=== PATIENT | female | born 1960 | race Caucasian/White ===

== ENCOUNTER 2017-07-25 12:46 | Inpatient (IN) ==
[2017-07-25] MEDS ORDERED: ZOFRAN IV ONE ×2 (14:06→15:20)
[2017-07-25] MEDS: NS 1,000 ML IV ONE ×2 (14:06→16:21)
[2017-07-25] MEDS ORDERED: TORADOL IV ONE (14:07)
[2017-07-25] MEDS ORDERED: TORADOL IM ONE (15:20)
[2017-07-25] MEDS ORDERED: ZOFRAN IM ONE (15:20)
--- NOTE | 2017-07-25 15:22 | Diag Imaging Result Doc PS360 ---
US GB < RUQ (LIMITED) - 07/25/2017 INDICATION: belly pain TECHNIQUE: Gu scale, color Doppler, and duplex evaluation of the abdomen was performed. COMPARISON: None FINDINGS: The liver appears enlarged at 22 cm and hyperechoic suggesting diffuse fatty liver infiltration. No focal masses are appreciated. The IVC and aorta appear normal. The pancreas is obscured by bowel gas artifact. The gallbladder is somewhat distended and contains moderate sludge and gallbladder wall thickening measuring 4 mm. The patient was tender over the gallbladder during scanning consistent with a positive sonographic Sanchez's sign. No gallstones are appreciated. The common bile duct is dilated and measures 9 mm. The portal vein is patent with hepatopetal flow. The right kidney appears normal. There is no hydronephrosis. IMPRESSION: 1.Gallbladder distention with sludge, gallbladder wall thickening, positive sonographic Sanchez's sign and prominent common bile duct. No cholelithiasis. Cannot exclude acute cholecystitis. Hepatobiliary scan may be beneficial. Correlate clinically. 2.Hepatomegaly with probable hepatic steatosis. Electronically signed by Sasha Larson 07/25/2017 3:20 PM
[2017-07-25 15:24] LABS: MANUAL DIFF NEEDED? NO
[2017-07-25 15:25] LABS: EOS# 0.02 X1000 (0.0-0.7); EOS% 0.3 % (0.0-10.0); HEMATOCRIT 40.5 % (37.0-47.0); HEMOGLOBIN 13.3 g/dL (12.0-16.0); IMM GRAN# 0.02 X1000 (0.0-0.04); IMM GRAN% 0.3 % (0.0-0.5); LYMPH# 0.56 X1000 (1.2-3.4); LYMPH% 8.2 % (20.5-51.1); MCH 30.2 PG (27-31); MCHC 32.8 g/dL (33-37); MCV 91.8 FL (81-99); MONO# 0.59 X1000 (0.11-0.59); MONO% 8.6 % (1.7-9.3); MPV 10.5 FL (7.4-10.4); NEUT% 81.6 % (42.2-75.2); PLT 267 X1000 (130-400); RBC 4.41 XMIL (4.2-5.4)
[2017-07-25] MEDS ORDERED: ZOSYN 3.375 GM in NS 50 ML IV ONE (15:38)
--- NOTE | 2017-07-25 15:40 | PROVIDER DOCUMENTATION ---
This chart was entered by El George Scribe, acting as scribe for Baldev Cuello MD. HPI-Abdominal Pain/GI Problem - General Chief Complaint: Return/Recheck Stated Complaint: RETURN/RECHECK Time Seen by Provider: 07/25/17 13:53 Source: patient Allergies/Adverse Reactions: Patient Allergies Allergy/AdvReac Type Severity Reaction Status Date / Time codeine Allergy NAUSEA Verified 03/04/17 19:44 levofloxacin [From Levaquin] Allergy SWELLING Verified 03/04/17 19:44 Sulfa (Sulfonamide Allergy Unknown Verified 03/04/17 19:44 Antibiotics) Home Medications: Home Medication List Medication Instructions Recorded Confirmed Last Taken Type Aspirin 81 mg PO DAILY 07/28/16 04/19/17 07/28/16 08:00 History 81 mg Bisoprolol [Zebeta] 5 mg PO DAILY 07/28/16 04/19/17 07/28/16 08:00 History 5 mg Levothyroxine [Synthroid] 50 mcg PO DAILY 07/28/16 04/19/17 07/28/16 07:00 History 50 mcg Losartan Potassium [Cozaar] 100 mg PO DAILY 07/28/16 04/19/17 07/28/16 08:00 History 100 mg Metformin HCl [Glucophage] 1,000 mg PO BID 07/28/16 04/19/17 07/28/16 08:00 History 1000 mg Omeprazole 40 mg PO DAILY 07/28/16 04/19/17 07/28/16 08:00 History 40 mg Sertraline [Zoloft] 25 mg PO HS 07/28/16 04/19/17 07/27/16 21:00 History 25 mg Trazodone [Desyrel] 50 mg PO HS PRN 07/28/16 04/19/17 07/27/16 21:00 History 50 mg Cyclobenzaprine [Flexeril] 10 mg PO PRN PRN 07/29/16 04/19/17 07/15/16 History Dulaglutide [Trulicity] 1.5 mg SQ ORDERED 07/29/16 04/19/17 07/22/16 History Meloxicam [Mobic] 15 mg PO DAILY PRN PRN 07/29/16 04/19/17 07/22/16 History Methocarbamol 750 mg PO DAILY PRN PRN 07/29/16 04/19/17 07/15/16 History Montelukast Sodium [Singulair] 10 mg PO DAILY 07/29/16 04/19/17 07/28/16 History Ondansetron Odt [Zofran Odt] 4 mg PO Q6H PRN PRN 07/29/16 04/19/17 07/24/16 History Oxycodone HCl/Acetaminophen 1 each PO Q6H PRN PRN 07/29/16 04/19/17 07/22/16 History [Oxycodone-Acetaminophen 5-325] Rosuvastatin Calcium [Crestor] 20 mg PO DAILY 03/04/17 04/19/17 Unknown History Hydrocodone/Acetaminophen [[place] 1 each PO Q6H PRN #12 tablet 07/21/17 Unknown Rx 5-325 Tablet] Lansoprazole [Prevacid] 30 mg PO DAILY #30 capsule. 07/21/17 Unknown Rx - History of Present Illness-ABD Nature of Presenting Problems: patient is a 56 y/o F that presents to the ER with RUQ pain x 5 days with n/v. patient was seen initially told it was GERD, pain has kept on so she called her pcp. Schedule for u/s at 2pm today but couldn't go due to pain Abdominal Pain Onset Location: reports: RUQ Pain Radiation: reports: no radiation Quality of Pain: reports: dull, sharp Severity in ED: reports: moderate Onset/Duration: reports: abrupt, 5 days ago Timing: reports: still present, constant Activities at Onset: reports: none Modifying Factors: worse with: eating, palpation Associated Symptoms: reports: nausea, vomiting. denies: back/neck pain, diarrhea, dizziness, fever/chills, genitourinary problems, shortness of breath Dark Stools Present?: reports: none noticed Rectal Bleeding: reports: none Similar Symptoms Previously?: Yes Recently seen or treated by another doctor?: Yes Review of Systems - Adult - REVIEW OF SYSTEMS - ADULT Constitutional: denies: chills, fever Eyes: reports: no symptoms reported Ears, Nose, Mouth & Throat: reports: no symptoms reported Cardiovascular: denies: chest pain, orthopnea, palpitations Respiratory: denies: cough, shortness of breath, wheezing Gastrointestinal: reports: abdominal pain, nausea, vomiting. denies: constipation, diarrhea, rectal bleeding Genitourinary: reports: no symptoms reported Musculoskeletal: denies: bone pain, muscle aches, neck pain Integumentary: reports: no symptoms reported Neurological: reports: no symptoms reported Psychiatric: reports: no symptoms reported Endocrine: reports: no symptoms reported Hematologic/Lymphatic: reports: no symptoms reported Allergic/Immunologic: reports: no symptoms reported All Other Systems: Reviewed and Negative Past History - Adult - PAST MEDICAL HISTORY-ADULT Review of Records: reports: Old Records Reviewed, Nursing Assessment Review, Medications Reviewed Major Childhood Illnesses: reports: denies history Cardiovascular: reports: HTN, heart valve problem, hyperlipidemia Respiratory: reports: sleep apnea Gastrointestinal: reports: GERD Obstetrical/Gynecological: reports: denies history Genitourinary: reports: denies history Musculoskeletal: reports: denies history Neurological: reports: denies history Endocrine/Immune: reports: Diabetes, thyroid disorder Other Conditions: reports: denies history - PRIOR SURGERIES/PROCEDURES Surgical/Procedure History: reports: hysterectomy, other (lithotripsy) - IMMUNIZATION STATUS Childhood Immunizations: See Nurse Assessment Flu Vaccine: See Nurse Assessment - FAMILY HISTORY Family History: reviewed, not pertinent - SOCIAL HISTORY Smoking: non-smoker Alcohol Use Frequency: never Living Situation: family Physical Exam-General - PHYSICAL EXAM-ADULT Initial Vital Signs Reviewed: Yes - CONSTITUTIONAL General Appearance: alert, mild distress - EYES Eyes: PERRL/EOMI, pink conjunctivae - HEAD, EARS, NOSE, MOUTH & THROAT HENMT: normocephalic/atraumatic, moist mucous membranes, normal ENT inspection - NECK Neck: full range of motion, normal inspection - RESPIRATORY Respiratory: lungs clear, normal breath sounds, no respiratory distress, no accessory muscle use - CARDIOVASCULAR Cardiovascular: regular rate, rhythm, no edema, no murmur - GASTROINTESTINAL (ABDOMEN) Abdominal Exam: normal bowel sounds, soft, no organomegaly, no pulsatile mass, tenderness (RUQ), Sanchez's sign - MUSCULOSKELETAL Back Exam: no CVA tenderness, no vertebral tenderness Extremity: normal range of motion, normal inspection, no pedal edema - SKIN Integumentary: normal color, warm/dry - NEUROLOGIC Neurologic: fire assistant II-XII nml as tested, no motor/sensory deficits - PSYCHIATRIC Psych/Mental Status: normal mood/affect, normal thought content, normal thought process, oriented x 3 Progress - PLAN OF CARE/RESULTS Progress/Plan/Lab Results: Vital Signs - 8 hr 07/25/17 12:49 Temperature 98 F Pulse Rate 60 Respiratory Rate 18 Blood Pressure 125/55 O2 Sat by Pulse Oximetry 97 Result Diagrams: 07/25/17 15:20 - ULTRASOUND (By Radiology) 1 US Study: Gallbladder Impression: Abnormal US Results: GB distention with sludge,thickening of wall, hepatomegaly - CONSULTS/PCP/HOSPITALIST Notification #1 *Consult/PCP/Hospitalist*: Time Discussed: 15:34 Reason/Comments: to his service Consult Disposition: Admit Departure - Departure Date of Disposition Decision: 07/25/17 Time of Disposition Decision: 15:34 DIAGNOSIS: Cholecystitis Disposition: ADMITTED INPATIENT 09 Certified Medical Emergency: Emergent Condition: Stable Referrals and Follow-Ups: Benjamin River DO [Primary Care Provider] - - Critical Care Note This patient required my direct & personal management of CC.: No Attestation - Physician/ ANAMARIA Attestation The physician spent face to face time with patient:: Yes Advanced Practice Provider documentation review:: Supervising physician onsite and consulted in the evaluation and care of this patient. The physician did have a face to face encounter with the patient. This chart was documented by the indicated scribe, (El George, Scribe) and accurately reflects the services I performed and decisions made by me, Baldev Cuello MD, as attested by the provider's signature.
[2017-07-25 15:53] LABS: AGAP 17; ALBUMIN 4.2 g/dL (3.5-5.0); ALKALINE PHOSPHATASE 155 U/L (32-104); BUN 11 mg/dL (8-22); CALCIUM 9.7 mg/dL (8.8-10.2); CHLORIDE 98 mmol/L (98-107); COSMO 277; GOT 360 U/L (10-30); GPT 133 U/L (10-36); POTASSIUM 3.3 mmol/L (3.5-5.1); SODIUM 136 mmol/L (136-145); TCO2 21 mmol/L (25-35); TOTAL PROTEIN 7.6 g/dL (6.3-8.3)
[2017-07-25] MEDS ORDERED: NS 1,000 ML IV SCH (18:00)
[2017-07-25] MEDS ORDERED: QUELICIN (DOSE) ONE (20:25)
[2017-07-25] MEDS ORDERED: XYLOCAINE-MPF 2% ONE (20:25)
[2017-07-25] MEDS ORDERED: DIPRIVAN 1% ONE (20:26)
[2017-07-25] MEDS ORDERED: MARCAINE 0.25% PF ONE (20:30)
[2017-07-25] MEDS ORDERED: XYLOCAINE 1%/EPI 1:100,000 ONE (20:30)
[2017-07-25] MEDS ORDERED: LR 1,000 ML ONE ×2 (20:30→22:36)
[2017-07-25] MEDS ORDERED: SODIUM CHLORIDE 0.9% ONE (20:30)
[2017-07-25] MEDS ORDERED: TRANSDERM-SCOP ONE (20:46)
[2017-07-25] MEDS ORDERED: ZEMURON ONE (21:33)
[2017-07-25] MEDS ORDERED: FENTANYL ONE (21:37)
[2017-07-25] MEDS ORDERED: ZOFRAN ONE (21:44)
[2017-07-25] MEDS ORDERED: DECADRON ONE (21:44)
[2017-07-25] MEDS ORDERED: TORADOL ONE (21:46)
[2017-07-25] MEDS ORDERED: ROBINUL ONE (22:05)
[2017-07-25] MEDS ORDERED: NEOSTIGMINE ONE (22:06)
[2017-07-25] MEDS: MORPHINE ONE ×2 (23:16→23:21)
[2017-07-26] MEDS ORDERED: SODIUM CHLORIDE 0.9% INJ PRN (00:44)
[2017-07-26] MEDS ORDERED: MORPHINE IV PRN (00:45)
[2017-07-26] MEDS ORDERED: PHENERGAN IV PRN (00:45)
[2017-07-26] MEDS ORDERED: NORCO-7.5 PO PRN (00:46)
--- NOTE | 2017-07-26 02:38 | HISTORY AND PHYSICAL ---
HISTORY OF PRESENT ILLNESS: Ms. Christiana Adame is a 56-year-old overweight, white female diabetic, a patient of Dr. Benjamin River, who has had a 3-day history of abdominal pain, localizing to her right upper quadrant, and moving around to her back. She was first evaluated in the emergency department at [facility] over the weekend, and was told that she had gastroesophageal reflux disease and sent home. She was recently evaluated by Dr. River, who has scheduled her for an ultrasound of her gallbladder, which was done this afternoon, when she re-presented to the emergency department with right-sided abdominal pain. The ultrasound suggested sludge. Her liver function tests were elevated. It was felt that she had symptomatic cholecystitis, and she was transferred from [facility] to [facility] for further treatment. PAST MEDICAL HISTORY: Diabetes, GERD, sleep apnea, hypertension, hyperlipidemia, mitral valve prolapse, thyroid disorder. PAST SURGICAL HISTORY: She has had a hysterectomy, lithotripsy. She recently had back surgery 3 weeks ago. MEDICATIONS: Zebeta 5 mg p.o. q.a.m., Synthroid 50 mcg p.o. q.a.m., Cozaar 100 mg p.o. q.a.m., aspirin 81 mg p.o. q.a.m., Glucophage 1000 mg b.i.d., Crestor 20 mg at bedtime, fenofibrate 160 mg p.o. at bedtime, Trulicity 1.5 mg weekly, Zoloft 25 mg at bedtime, Prilosec 40 mg p.o. q.a.m., Singulair 10 mg p.o. q.a.m., trazodone 50 mg p.o. at bedtime, B12 shot monthly, and Percocet 5/325 as needed. ALLERGIES: Codeine, Levaquin, and sulfa. SOCIAL HISTORY: She is . Her was at the bedside. She does not smoke. REVIEW OF SYSTEMS: A 14-point review of systems was performed, and essentially negative, except for the history of present illness. FAMILY HISTORY: Noncontributory. PHYSICAL EXAMINATION: VITAL SIGNS: Heart rate 68, blood pressure 117/61, O2 saturation 96%. She is 5 feet, weighs 174 pounds. Temperature 99.5 degrees, O2 saturation 96%. LABORATORY STUDIES: White blood cell count is normal. Hematocrit 40%. Liver function tests were elevated. Electrolytes were within normal limits, except for glucose of 194. IMPRESSION: Acute cholecystitis, with cholelithiasis. PLAN: Laparoscopic cholecystectomy. I have discussed the procedure in detail with the patient and her family at the bedside, including its risks of bleeding, infection, injury to the extrahepatic bile ducts requiring reoperation, conversion of laparoscopic to open cholecystectomy, bile leak requiring reoperation for drainage, and injury to extrahepatic bile ducts requiring reoperation. She understands the need for surgery and its risks, and wants to proceed. cc: Rosa Mann MD
[2017-07-26] MEDS ORDERED: TYLENOL PO PRN (04:53)
--- NOTE | 2017-07-26 06:26 | EKG Report ---
Test Performed on : 07/25/2017 6:20:03 PM Test Reason : pre-op Blood Pressure : / mmHG Vent. Rate : 067 BPM Atrial Rate : 067 BPM P-R Int : 200 ms QRS Dur : 088 ms QT Int : 414 ms P-R-T Axes : 037 068 056 degrees QTc Int : 437 ms Normal sinus rhythm. Normal ECG When compared with ECG of 21-JUL-2017 02:40, No significant change was found Confirmed by Manuel Nogueira MD ([id number]) on 07/29/2017 11:58:20 AM
--- NOTE | 2017-07-26 07:00 | OPERATIVE NOTE ---
PROCEDURE DATE: 07/25/2017 PREOPERATIVE DIAGNOSIS: Acute cholecystitis with cholelithiasis. POSTOPERATIVE DIAGNOSIS: Acute cholecystitis with cholelithiasis. PRINCIPAL PROCEDURE: Laparoscopic cholecystectomy with intraoperative cholangiogram. SURGEON: Rosa Mnan MD 1ST SHOULDER PUNCHER: Corie Edwards RN. ANESTHESIA: General in addition to local anesthetic. ESTIMATED BLOOD LOSS: 30 mL. DRAINS: None. INDICATIONS: Claribel Adame is a 56-year-old white female diabetic who has been experiencing right upper quadrant pain, and an ultrasound suggested a positive Sanchez sign, thickened gallbladder llanes and sludge. She had elevated liver function tests. It was felt that she had acute cholecystitis and cholecystectomy was recommended. FINDINGS: She had a fatty enlarged liver. Her gallbladder was acutely inflamed and tightly distended. We drained the bile which was white bile. We did do an intraoperative cholangiogram, which showed free flow of the dye into the duodenum without evidence of extrahepatic stones or obstruction. We had to use a large clip paid search marketing strategist to come across the dilated inflamed cystic duct. We felt we controlled the cystic duct well and we did the operation safely. We noticed no other intra-abdominal pathology. DESCRIPTION OF PROCEDURE: The patient was brought to the operating room, placed supine, received general anesthesia, and was intubated. Her abdomen was prepped and draped within the sterile field. She received antibiotics prior to surgery. We made a small incision below the umbilicus using a 15 blade scalpel and a Veress needle was introduced into the abdomen through this incision, and the pneumoperitoneum was established. The Veress needle was removed and I used an 11 mm trocar and placed it through this incision into the abdomen. The camera was placed through this port, and the abdomen was explored for injury, there was none. Three other trocars were placed along the right costal margin under direct vision of the camera. We placed 11 mm trocar just to the right of the midline and two 5 mm trocars in our midclavicular and anterior axillary lines. Through our most lateral port, the gallbladder was grasped but then we decided to decompress the gallbladder. I placed the needle with suction into the fundus of the gallbladder and drained white bile. It made this thickened gallbladder wall easier to manipulate. I used the grasper with teeth and grabbed the fundus of the gallbladder, and retracted the right lobe of the liver with the gallbladder. I used another grasper to grab the underside of the gallbladder, and then we took care to dissect the triangle of Calot. It was inflamed in this area but we felt we dissected it safely with blunt dissection. I identified the cystic duct along its length. I placed a clip at the cystic duct gallbladder junction. This was a large clip. I made a small incision in the cystic duct using hook scissors and a taut intraoperative cholangiogram catheter was used to perform the cholangiogram with findings above. Once cholangiogram was completed, I removed the catheter and 2 large clips were placed proximally on the cystic duct. We divided the cystic duct between clips using hook scissors. The cystic artery was identified. A clip was placed distally, 2 proximally, and it was divided using hook scissors. The spatula cautery was used to remove the gallbladder from the liver bed. I then used an endobag to remove the gallbladder through our umbilical incision. I placed the trocar back through this incision and the area of operation was thoroughly inspected, irrigated, and the irrigation was removed with suction. There was no evidence of ongoing bleeding or bile leak and no drains were left. All trocars were removed under direct vision of the camera, the pneumoperitoneum was allowed to dissipate. I used 2 [id number] 0 Vicryl stitches to reapproximate the fascia at the umbilicus and all skin was closed with 4-0 Monocryl subcuticular stitches. Dressings were applied. She will go to the recovery room and then be hospitalized overnight. cc: Rosa Mann MD
--- NOTE | 2017-07-26 07:24 | Diag Imaging Result Doc PS360 ---
EXAM: OPERATIVE CHOLANGIOGRAM HISTORY: ACUTE CHOLECYSTITIS TECHNIQUE: Intraoperative cholangiogram one view COMMENT: There is some contrast in the duodenum. There is no evidence of filling defects in the common hepatic or common bile ducts. The common bile duct may be slightly distended. IMPRESSION: No evidence of retained stones or obstruction. Electronically signed by Ceferino Houston 07/26/2017 7:21 AM
[2017-07-26] MEDS ORDERED: PERIDEX MT SCH (09:00)
[2017-07-26 11:25] VITALS: BP 99/57
[2017-07-26] MEDS: LR 1,000 ML IV SCH ×2 (13:05→15:21)
== END 2017-07-26 15:49 | disposition home or self-care (01) ==
LOC: P.ED 12:46 → 4N 12:46 → OBSVTOIN 12:47
PROVIDERS: ADMIT Surgery; ATTEND Surgery